=== PATIENT | female | born 1990 | race Caucasian/White ===

== ENCOUNTER 2019-10-27 17:46 | Outpatient (CLI) | payer OTHER ==
[2019-10-27] MEDS ORDERED: PRENATAL TABLE1 EAC1 PO (19:11)
== END 2019-10-27 20:40 ==
LOC: OBS/DEL 17:46
PROVIDERS: ATTEND Obstetrics & Gynecology
DX: O40.2XX0 Polyhydramnios, second trimester, not applicable or unspecified (principal); O23.592 Infection of other part of genital tract in pregnancy, second trimester; B96.89 Other specified bacterial agents as the cause of diseases classified elsewhere

== ENCOUNTER 2020-01-19 14:45 | Inpatient (IN) | payer OTHER ==
[~2020-01-19] VITALS: Ht 157.5 cm; Wt 98.4 kg
[~2020-01-19 14:45] MED LIST: PRENATAL TABLE1 EAC1 PO
[2020-01-21] MEDS ORDERED: CHILDREN'S ASPI81 MG (22:16)
[2020-01-21] MEDS ORDERED: IRON236 MG (22:16)
[2020-01-24] MEDS ORDERED: IBU400 MG PO (14:05)
[2020-01-24] MEDS ORDERED: COLACE100 MG PO (14:06)
[2020-01-24] MEDS ORDERED: INTEGRA PLUS C1 EACH PO (14:06)
[2020-01-24] MEDS ORDERED: SIMETHICONE125 M1 PO (14:06)
== END 2020-01-24 16:11 | disposition home or self-care (01) | DRG 807 ==
LOC: LDR 01-21 21:26 → OB/GYN 01-22 16:29
PROVIDERS: ADMIT Obstetrics & Gynecology; ATTEND Obstetrics & Gynecology
PROC: 10907ZC Drainage of Amniotic Fluid, Therapeutic from Products of Conception, Via Natural or Artificial Opening (ICD-10-PCS; 2020-01-21)
PROC: 4A1HXFZ Monitoring of Products of Conception, Cardiac Rhythm, External Approach (ICD-10-PCS; 2020-01-21)
PROC: 10E0XZZ Delivery of Products of Conception, External Approach (ICD-10-PCS; principal; 2020-01-22)
PROC: 0UQMXZZ Repair Vulva, External Approach (ICD-10-PCS; 2020-01-22)
DX: O71.82 Other specified trauma to perineum and vulva (principal); Z37.0 Single live birth; O70.0 First degree perineal laceration during delivery; Z3A.39 39 weeks gestation of pregnancy; Z20.828 Contact with and (suspected) exposure to other viral communicable diseases